=== PATIENT | female | born 1935 | race African-American/Black ===

== ENCOUNTER 2018-04-23 08:06 | Emergency (ER) | payer MEDICAID, MEDICARE, OTHER ==
[~2018-04-23] VITALS: Ht 162.6 cm; Wt 58.0 kg
[2018-04-23] MEDS ORDERED: KETOROLAC 30MG/ML VIAL IM ONE (10:00)
[2018-04-23 10:30] LABS: BASOPHILS % 0.6 % (0.0-2.0); EOSINOPHILS % 0.4 % (0.0-5.0); HEMATOCRIT. 36.3 % (36.0-48.0); LYMPHOCYTES % 28.1 % (20.0-50.0); MEAN CORPUSCULAR HEMOGLOBIN 29.6 pg (28.0-32.0); MEAN CORPUSCULAR VOLUME 89.3 fL (81.0-99.0); MEAN PLATELET VOLUME 7.5 fl (7.4-10.4); MONOCYTES % 5.2 % (2.0-8.0); NEUTROPHILS % 65.7 % (40.0-76.0); PLATELET 241 x1000/uL (130-400); RED BLOOD CELL COUNT 4.07 mill/uL (4.2-5.4); RED CELL DISTRIBUTION WIDTH 14.9 % (11.6-14.6)
[2018-04-23 10:41] LABS: CHLORIDE 106 mEq/L (98-107)
[2018-04-23 10:45] LABS: C REACTIVE PROTEIN CARDIAC 0.95 mg/L (0.00-3.00)
[2018-04-23] MEDS ORDERED: TRAMADOL 50MG TABLET PO ONE (12:45)
[2018-04-23 13:40] LABS: CLARITY URINE CLEAR (CLEAR); COLOR URINE YELLOW (YELLOW); KETONES URINE NEGATIVE (NEGATIVE); LEUKOCYTE ESTERASE URINE NEGATIVE (NEGATIVE); NITRITE URINE NEGATIVE (NEGATIVE); OCCULT BLOOD URINE NEGATIVE (NEGATIVE); PROTEIN URINE TRACE (NEGATIVE); SPECIFIC GRAVITY URINE 1.015 (1.005-1.030)
[2018-04-23 14:30] VITALS: BP 122/84
== END 2018-04-23 15:00 | disposition home or self-care (01) ==
LOC: ER 10:33
DX: M25.552 Pain in left hip (principal); J44.9 Chronic obstructive pulmonary disease, unspecified; I10 Essential (primary) hypertension; G89.29 Other chronic pain; M54.9 Dorsalgia, unspecified; M19.90 Unspecified osteoarthritis, unspecified site; Z90.710 Acquired absence of both cervix and uterus; G62.9 Polyneuropathy, unspecified
CPT/HCPCS: 36415; 72192; 73700; 80053; 81003; 85025; 85651; 86141; 96372; 99285; J1885

== ENCOUNTER 2019-03-31 22:21 | Inpatient (IN) | payer MEDICARE, MEDICAID ==
[~2019-03-31] VITALS: Ht 157.5 cm; Wt 60.3 kg
[2019-03-31] MEDS ORDERED: METHYLPREDNISOLONE SOD SUCC 125 MG/2 ML VIAL IV STA (22:28)
[2019-03-31] MEDS ORDERED: IPRATROPIUM BROMIDE (0.02%) 0.5MG/2.5ML NEB HHN STA (22:28)
[2019-03-31] MEDS ORDERED: ONDANSETRON HCL 4MG/2ML INJ IV STA (22:28)
[2019-03-31] MEDS ORDERED: MAGNESIUM 2 G PREMIX 50 ML IV ONE (22:30)
[2019-03-31] MEDS: ALBUTEROL (0.083%) 2.5MG/3ML NEB HHN SCH ×2 (23:00→23:30)
[2019-03-31 23:04] LABS: BG BILEVEL POS AIRWAY PRESSURE 15/5; BG CARBOXYHEMOGLOBIN 1.9 % (0.5-1.5); BG DEOXYHEMOGLOBIN 25.6 % (0.0-5.0); BG FRACTION INSPIRED OXYGEN 100; BG HCO3 ACT 26.9 mmol/L (22.0-26.0); BG METHEMOGLOBIN 0.1 % (0.0-1.5); BG OXYGEN SATURATION 73.9 % (92.0-98.5); BG OXYHEMOGLOBIN 72.4 % (94.0-97.0); BG PCO2 54.1 mmHg (35.0-45.0); BG PH 7.314 (7.350-7.450); BG PO2 43.2 mmHg (75.0-100.0); BG SAMPLE SITE RIGHT RADIAL; BG TOTAL HEMOGLOBIN 11.5 g/dL (12.0-18.0); BG VENT MODE MASK - BIPAP
[2019-03-31 23:33] LABS: BASOPHILS % 0.8 % (0.0-2.0); EOSINOPHILS % 1.6 % (0.0-5.0); HEMATOCRIT. 32.3 % (36.0-48.0); HEMOGLOBIN. 10.4 g/dL (12.0-16.0); LYMPHOCYTES % 26.1 % (20.0-50.0); MEAN CORPUSCULAR HEMOGLOBIN 29.1 pg (28.0-32.0); MEAN CORPUSCULAR VOLUME 90.3 fL (81.0-99.0); MEAN PLATELET VOLUME 7.3 fl (7.4-10.4); MONOCYTES % 7.1 % (2.0-8.0); NEUTROPHILS % 64.4 % (40.0-76.0); PLATELET 260 x1000/uL (130-400); RED BLOOD CELL COUNT 3.58 mill/uL (4.2-5.4); RED CELL DISTRIBUTION WIDTH 15.8 % (11.6-14.6)
[2019-03-31 23:38] LABS: CHLORIDE 111 mEq/L (98-107)
[2019-04-01] VITALS (9 sets, daily range): BP systolic 102–174; BP diastolic 58–95
[2019-04-01] MEDS: ALBUTEROL (0.083%) 2.5MG/3ML NEB HHN SCH
[2019-04-01 00:18] LABS: CLARITY URINE CLEAR (CLEAR); COLOR URINE YELLOW (YELLOW); KETONES URINE NEGATIVE (NEGATIVE); LEUKOCYTE ESTERASE URINE NEGATIVE (NEGATIVE); NITRITE URINE NEGATIVE (NEGATIVE); OCCULT BLOOD URINE NEGATIVE (NEGATIVE); PROTEIN URINE 2+ (NEGATIVE); SPECIFIC GRAVITY URINE 1.019 (1.005-1.030); UROBILINOGEN URINE 0.2 E.U./dL (0.2-1.0)
[2019-04-01] MEDS ORDERED: DEXT 5%/0.45% NACL 500ML 1,000 ML IV SCH (04:30)
[2019-04-01] MEDS ORDERED: ONDANSETRON HCL 4MG/2ML INJ IV PRN (04:30)
[2019-04-01 06:36] LABS: CHLORIDE 110 mEq/L (98-107)
[2019-04-01 07:34] LABS: BG BILEVEL POS AIRWAY PRESSURE 15/5; BG CARBOXYHEMOGLOBIN 0.3 % (0.5-1.5); BG DEOXYHEMOGLOBIN 0.5 % (0.0-5.0); BG FRACTION INSPIRED OXYGEN 80; BG HCO3 ACT 29.1 mmol/L (22.0-26.0); BG METHEMOGLOBIN 0.4 % (0.0-1.5); BG OXYGEN SATURATION 99.5 % (92.0-98.5); BG OXYHEMOGLOBIN 98.8 % (94.0-97.0); BG PCO2 51.5 mmHg (35.0-45.0); BG PO2 365.9 mmHg (75.0-100.0); BG SAMPLE SITE RIGHT BRACHIAL; BG VENT MODE MASK - BIPAP; BG VENT RATE 16 set
[2019-04-01] MEDS: ENOXAPARIN 40MG/0.4ML SYR SUBCUT SCH (08:03)
[2019-04-01] MEDS: METHYLPREDNISOLONE SOD SUCC 40 MG/ML VIAL IV SCH ×3 (08:03→17:12)
[2019-04-01] MEDS: DEXT 5%/0.45% NACL 1000ML 1,000 ML IV SCH ×2 (08:26→20:00)
[2019-04-01] MEDS ORDERED: LEVOFLOXACIN 500MG PREMIX 100 ML IV SCH (08:30)
[2019-04-01] MEDS ORDERED: PANTOPRAZOLE SODIUM 40 MG/VIAL IV SCH (09:00)
[2019-04-01] MEDS: CLONIDINE 0.1MG TABLET PO PRN (09:49)
[2019-04-01] MEDS ORDERED: PNEUMOCOCCAL 23-VAL P-SAC VAC 0.5 ML IM ONE (12:00)
[2019-04-01] MEDS ORDERED: INFLUENZA VIRUS VACCINE(AFLURIA) 0.5ML SYR IM ONE (12:00)
[2019-04-01] MEDS: IPRATROPIUM/ALBUTEROL 0.5-3(2.5)MG/3ML NEB HHN SCH ×3 (12:30→19:49)
[2019-04-01 13:37] LABS: HEMATOCRIT. 31.9 % (36.0-48.0); HEMOGLOBIN. 10.2 g/dL (12.0-16.0); MEAN CORPUSCULAR HEMOGLOBIN 29.1 pg (28.0-32.0); MEAN PLATELET VOLUME 7.5 fl (7.4-10.4); PLATELET 234 x1000/uL (130-400); RED CELL DISTRIBUTION WIDTH 15.8 % (11.6-14.6)
[2019-04-01] MEDS ORDERED: GABA300S PO (13:37)
[2019-04-01] MEDS ORDERED: HYDR-459 MT (13:37)
[2019-04-01] MEDS ORDERED: ASPI-1393 MT (13:37)
[2019-04-01] MEDS ORDERED: AMLO5TAB88 MT (13:37)
[2019-04-01] MEDS ORDERED: LOSA50TA41 MT (13:37)
[2019-04-01] MEDS ORDERED: OMEP20CA5 MT (13:37)
[2019-04-01 13:47] LABS: D-DIMER 0.75 mg/L FEU (<0.50); INR 1.2; PROTHROMBIN TIME 11.8 sec (9.6-11.0)
[2019-04-01 13:58] LABS: PLATELET ESTIMATE NORMAL
[2019-04-01] MEDS ORDERED: BISACODYL 10MG SUPP PR PRN (15:45)
[2019-04-01] MEDS ORDERED: IPRATROPIUM/ALBUTEROL 0.5-3(2.5)MG/3ML NEB HHN PRN (15:45)
[2019-04-01] MEDS ORDERED: LORAZEPAM 2MG/ML CPJ IV PRN (15:45)
[2019-04-01] MEDS: ACETAMINOPHEN 325MG TABLET PO PRN (16:39)
[2019-04-01] MEDS: MONTELUKAST SODIUM 10MG TABLET PO SCH (17:12)
[2019-04-01] MEDS: GABAPENTIN 300MG CAPSULE PO SCH (17:12)
[2019-04-01] MEDS: FAMOTIDINE 20MG/2ML VIAL IV SCH (21:30)
[2019-04-01 23:23] LABS: *AMPHETAMINES SCREEN URINE NEGATIVE (NEGATIVE); *BARBITURATES SCREEN URINE NEGATIVE (NEGATIVE); *BENZODIAZEPINES SCREEN URINE NEGATIVE (NEGATIVE); *COCAINE SCREEN URINE PRESUMTIVE POSITIVE (NEGATIVE); METHADONE URINE SCREEN NEGATIVE (NEGATIVE); OPIATES URINE SCREEN NEGATIVE (NEGATIVE)
[2019-04-01 23:25] LABS: PHENCYCLIDINE URINE SCREEN NEGATIVE (NEGATIVE)
[2019-04-01 23:31] LABS: CANNABINOID URINE SCREEN NEGATIVE (NEGATIVE)
[2019-04-02] VITALS (12 sets, daily range): BP systolic 135–166; BP diastolic 67–120
[2019-04-02] MEDS: IPRATROPIUM/ALBUTEROL 0.5-3(2.5)MG/3ML NEB HHN SCH ×6 (00:55→20:04)
[2019-04-02] MEDS: METHYLPREDNISOLONE SOD SUCC 40 MG/ML VIAL IV SCH ×4 (01:50→21:30)
[2019-04-02 06:56] LABS: HEMATOCRIT. 31.3 % (36.0-48.0); HEMOGLOBIN. 9.9 g/dL (12.0-16.0); MEAN CORPUSCULAR HEMOGLOBIN 28.7 pg (28.0-32.0); MEAN CORPUSCULAR VOLUME 90.5 fL (81.0-99.0); MEAN PLATELET VOLUME 7.5 fl (7.4-10.4); PLATELET 240 x1000/uL (130-400); RED BLOOD CELL COUNT 3.46 mill/uL (4.2-5.4); RED CELL DISTRIBUTION WIDTH 15.8 % (11.6-14.6)
[2019-04-02 08:21] LABS: CHLORIDE 107 mEq/L (98-107)
[2019-04-02] MEDS: LOSARTAN POTASSIUM 50 MG TABLET PO SCH (08:28)
[2019-04-02] MEDS: LEVOFLOXACIN 250MG PREMIX 50 ML IV SCH (08:28)
[2019-04-02] MEDS: ENOXAPARIN 40MG/0.4ML SYR SUBCUT SCH (08:28)
[2019-04-02] MEDS: GABAPENTIN 300MG CAPSULE PO SCH ×2 (08:29→16:58)
[2019-04-02] MEDS: LORATADINE 10MG TABLET PO SCH (08:29)
[2019-04-02] MEDS: AMLODIPINE 5MG TABLET PO SCH (08:29)
[2019-04-02] MEDS: FAMOTIDINE 20MG/2ML VIAL IV SCH (08:29)
[2019-04-02] MEDS: DEXT 5%/0.45% NACL 1000ML 1,000 ML IV SCH (08:29)
[2019-04-02] MEDS: ASPIRIN 81MG TABLET PO SCH (08:29)
[2019-04-02 09:11] LABS: PLATELET ESTIMATE NORMAL
[2019-04-02] MEDS ORDERED: LIDOCAINE HCL 1% 20ML VIAL (Pyxis) INJ ONE (10:08)
[2019-04-02 11:19] LABS: BG BASE EXCESS 2.6 mmol/L (-2.0-2.0); BG CARBOXYHEMOGLOBIN 0.1 % (0.5-1.5); BG DEOXYHEMOGLOBIN 5.1 % (0.0-5.0); BG FRACTION INSPIRED OXYGEN 32; BG HCO3 ACT 27.9 mmol/L (22.0-26.0); BG METHEMOGLOBIN 0.3 % (0.0-1.5); BG OXYGEN SATURATION 94.9 % (92.0-98.5); BG OXYHEMOGLOBIN 94.5 % (94.0-97.0); BG PCO2 45.9 mmHg (35.0-45.0); BG PH 7.401 (7.350-7.450); BG PO2 73.1 mmHg (75.0-100.0); BG SAMPLE SITE RIGHT BRACHIAL; BG TOTAL HEMOGLOBIN 10.9 g/dL (12.0-18.0); BG VENT MODE NASAL CANNULA
[2019-04-02] MEDS ORDERED: IOHEXOL-350 100 ML BOTTLE ONE (12:44)
[2019-04-02] MEDS: MONTELUKAST SODIUM 10MG TABLET PO SCH (16:58)
[2019-04-02] MEDS: DILTIAZEM HCL 30MG TABLET PO SCH (21:29)
[2019-04-02] MEDS: ACETAMINOPHEN 325MG TABLET PO PRN (21:30)
[2019-04-02] MEDS: HYDROCODONE/ACETAMINOPHEN 5/325MG TABLET PO PRN (22:51)
[2019-04-03] VITALS (13 sets, daily range): BP systolic 130–157; BP diastolic 34–92
[2019-04-03] MEDS: IPRATROPIUM/ALBUTEROL 0.5-3(2.5)MG/3ML NEB HHN SCH ×6 (00:17→20:36)
[2019-04-03] MEDS: METHYLPREDNISOLONE SOD SUCC 40 MG/ML VIAL IV SCH ×3 (05:34→21:43)
[2019-04-03] MEDS: DILTIAZEM HCL 30MG TABLET PO SCH ×3 (05:36→21:44)
[2019-04-03 07:12] LABS: HEMATOCRIT. 29.8 % (36.0-48.0); HEMOGLOBIN. 9.5 g/dL (12.0-16.0); MEAN CORPUSCULAR HEMOGLOBIN 28.7 pg (28.0-32.0); MEAN CORPUSCULAR VOLUME 89.7 fL (81.0-99.0); MEAN PLATELET VOLUME 7.8 fl (7.4-10.4); PLATELET 253 x1000/uL (130-400); RED BLOOD CELL COUNT 3.32 mill/uL (4.2-5.4); RED CELL DISTRIBUTION WIDTH 16.1 % (11.6-14.6)
[2019-04-03 07:13] LABS: CHLORIDE 108 mEq/L (98-107)
[2019-04-03 07:23] LABS: LDL CHOLESTEROL 83 mg/dL (5-100)
[2019-04-03 07:25] LABS: HDL CHOLESTEROL 84 mg/dL (40-59); T4 FREE 0.96 ng/dL (0.76-1.46)
[2019-04-03] MEDS: ASPIRIN 81MG TABLET PO SCH (09:04)
[2019-04-03] MEDS: LEVOFLOXACIN 250MG PREMIX 50 ML IV SCH (09:05)
[2019-04-03] MEDS: ENOXAPARIN 40MG/0.4ML SYR SUBCUT SCH (09:05)
[2019-04-03] MEDS: LOSARTAN POTASSIUM 50 MG TABLET PO SCH (09:05)
[2019-04-03] MEDS: FAMOTIDINE 20MG/2ML VIAL IV SCH (09:05)
[2019-04-03] MEDS: GABAPENTIN 300MG CAPSULE PO SCH ×2 (09:05→16:21)
[2019-04-03] MEDS: AMLODIPINE 5MG TABLET PO SCH (09:05)
[2019-04-03] MEDS: LORATADINE 10MG TABLET PO SCH (09:05)
[2019-04-03] MEDS: HYDROCODONE/ACETAMINOPHEN 5/325MG TABLET PO PRN ×2 (09:18→23:36)
[2019-04-03] MEDS: MONTELUKAST SODIUM 10MG TABLET PO SCH (16:21)
[2019-04-03 19:37] LABS: PLATELET ESTIMATE NORMAL
[2019-04-03] MEDS: ACETAMINOPHEN 325MG TABLET PO PRN (19:51)
[2019-04-04] VITALS (12 sets, daily range): BP systolic 133–164; BP diastolic 67–82
[2019-04-04] MEDS: IPRATROPIUM/ALBUTEROL 0.5-3(2.5)MG/3ML NEB HHN SCH ×6 (00:34→20:03)
[2019-04-04] MEDS: HYDROCODONE/ACETAMINOPHEN 5/325MG TABLET PO PRN ×2 (06:25→17:38)
[2019-04-04] MEDS: DILTIAZEM HCL 30MG TABLET PO SCH ×3 (06:31→21:02)
[2019-04-04] MEDS: METHYLPREDNISOLONE SOD SUCC 40 MG/ML VIAL IV SCH ×3 (06:31→21:01)
[2019-04-04] MEDS: CLONIDINE 0.1MG TABLET PO PRN (06:31)
[2019-04-04 07:07] LABS: HEMATOCRIT 31.4 % (36.0-48.0); HEMOGLOBIN 10.2 g/dL (12.0-16.0); MEAN CORPUSCULAR HEMOGLOBIN 29.1 pg (28.0-32.0); MEAN CORPUSCULAR VOLUME 89.7 fL (81.0-99.0); PLATELET 269 x1000/uL (130-400); RED BLOOD CELL COUNT 3.49 mill/uL (4.2-5.4); RED CELL DISTRIBUTION WIDTH 15.8 % (11.6-14.6)
[2019-04-04 07:49] LABS: CHLORIDE 107 mEq/L (98-107)
[2019-04-04] MEDS: LEVOFLOXACIN 250MG PREMIX 50 ML IV SCH (09:25)
[2019-04-04] MEDS: ASPIRIN 81MG TABLET PO SCH (09:34)
[2019-04-04] MEDS: LORATADINE 10MG TABLET PO SCH (09:34)
[2019-04-04] MEDS: GABAPENTIN 300MG CAPSULE PO SCH ×2 (09:34→17:36)
[2019-04-04] MEDS: FAMOTIDINE 20MG/2ML VIAL IV SCH (09:34)
[2019-04-04] MEDS: LOSARTAN POTASSIUM 50 MG TABLET PO SCH (09:34)
[2019-04-04] MEDS: AMLODIPINE 5MG TABLET PO SCH (09:34)
[2019-04-04] MEDS: ENOXAPARIN 40MG/0.4ML SYR SUBCUT SCH (09:35)
[2019-04-04] MEDS: ACETYLCYSTEINE 100MG/ML 10% VIAL 4ML INH SCH (16:06)
[2019-04-04] MEDS: MONTELUKAST SODIUM 10MG TABLET PO SCH (17:36)
[2019-04-05] VITALS (12 sets, daily range): BP systolic 107–165; BP diastolic 51–83
[2019-04-05] MEDS: ACETYLCYSTEINE 100MG/ML 10% VIAL 4ML INH SCH ×3 (00:13→15:58)
[2019-04-05] MEDS: IPRATROPIUM/ALBUTEROL 0.5-3(2.5)MG/3ML NEB HHN SCH ×6 (00:13→20:38)
[2019-04-05] MEDS: HYDROCODONE/ACETAMINOPHEN 5/325MG TABLET PO PRN ×2 (03:15→23:31)
[2019-04-05] MEDS: DIPHENHYDRAMINE 50MG/ML VIAL IV PRN (03:16)
[2019-04-05] MEDS: METHYLPREDNISOLONE SOD SUCC 40 MG/ML VIAL IV SCH ×3 (05:19→21:25)
[2019-04-05] MEDS: DILTIAZEM HCL 30MG TABLET PO SCH ×3 (05:19→21:25)
[2019-04-05] MEDS: FAMOTIDINE 20MG/2ML VIAL IV SCH (09:45)
[2019-04-05] MEDS: ENOXAPARIN 40MG/0.4ML SYR SUBCUT SCH (09:46)
[2019-04-05] MEDS: GABAPENTIN 300MG CAPSULE PO SCH ×2 (09:46→18:04)
[2019-04-05] MEDS: LORATADINE 10MG TABLET PO SCH (09:46)
[2019-04-05] MEDS: ASPIRIN 81MG TABLET PO SCH (09:46)
[2019-04-05] MEDS: LOSARTAN POTASSIUM 50 MG TABLET PO SCH (09:46)
[2019-04-05] MEDS: AMLODIPINE 5MG TABLET PO SCH (09:47)
[2019-04-05] MEDS: LEVOFLOXACIN 250MG PREMIX 50 ML IV SCH (11:33)
[2019-04-05] MEDS: MONTELUKAST SODIUM 10MG TABLET PO SCH (18:04)
[2019-04-05] MEDS: ACETAMINOPHEN 325MG TABLET PO PRN (18:08)
[2019-04-06] VITALS (13 sets, daily range): BP systolic 108–163; BP diastolic 56–82
[2019-04-06] MEDS: IPRATROPIUM/ALBUTEROL 0.5-3(2.5)MG/3ML NEB HHN SCH ×6 (00:46→20:34)
[2019-04-06] MEDS: ACETYLCYSTEINE 100MG/ML 10% VIAL 4ML INH SCH ×3 (00:46→15:50)
[2019-04-06] MEDS: DILTIAZEM HCL 30MG TABLET PO SCH ×3 (06:14→21:33)
[2019-04-06] MEDS: METHYLPREDNISOLONE SOD SUCC 40 MG/ML VIAL IV SCH ×3 (06:14→21:24)
[2019-04-06] MEDS: LORATADINE 10MG TABLET PO SCH (08:56)
[2019-04-06] MEDS: ASPIRIN 81MG TABLET PO SCH (08:56)
[2019-04-06] MEDS: LOSARTAN POTASSIUM 50 MG TABLET PO SCH (08:56)
[2019-04-06] MEDS: GABAPENTIN 300MG CAPSULE PO SCH ×2 (08:56→18:05)
[2019-04-06] MEDS: FAMOTIDINE 20MG/2ML VIAL IV SCH (08:56)
[2019-04-06] MEDS: AMLODIPINE 5MG TABLET PO SCH (08:57)
[2019-04-06] MEDS: ENOXAPARIN 40MG/0.4ML SYR SUBCUT SCH (08:57)
[2019-04-06] MEDS: LEVOFLOXACIN 250MG PREMIX 50 ML IV SCH (08:59)
[2019-04-06] MEDS ORDERED: LACTULOSE 20G/30ML UDC PO NR (10:45)
[2019-04-06] MEDS: HYDROCODONE/ACETAMINOPHEN 5/325MG TABLET PO PRN (13:52)
[2019-04-06] MEDS: MONTELUKAST SODIUM 10MG TABLET PO SCH (18:05)
[2019-04-06] MEDS: ACETAMINOPHEN 325MG TABLET PO PRN (21:32)
[2019-04-06] MEDS: CLONIDINE 0.1MG TABLET PO PRN (21:38)
[2019-04-06] MEDS: DIPHENHYDRAMINE 50MG/ML VIAL IV PRN (22:30)
== END 2019-04-06 23:15 | DRG 917 ==
LOC: ER 22:21 → 5EST 23:39 → ENRESERV 04-01 01:01
PROVIDERS: ADMIT Internal Medicine; ATTEND Internal Medicine
PROC: 5A09357 Assistance with Respiratory Ventilation, Less than 24 Consecutive Hours, Continuous Positive Airway Pressure (ICD-10-PCS; 2019-03-31)
PROC: 5A09357 Assistance with Respiratory Ventilation, Less than 24 Consecutive Hours, Continuous Positive Airway Pressure (ICD-10-PCS; 2019-04-01)
PROC: 02HV33Z Insertion of Infusion Device into Superior Vena Cava, Percutaneous Approach (ICD-10-PCS; principal; 2019-04-02)
PROC: B548ZZA Ultrasonography of Superior Vena Cava, Guidance (ICD-10-PCS; 2019-04-02)
PROC: 5A09357 Assistance with Respiratory Ventilation, Less than 24 Consecutive Hours, Continuous Positive Airway Pressure (ICD-10-PCS; 2019-04-02)
PROC: 5A09357 Assistance with Respiratory Ventilation, Less than 24 Consecutive Hours, Continuous Positive Airway Pressure (ICD-10-PCS; 2019-04-03)
PROC: 5A09357 Assistance with Respiratory Ventilation, Less than 24 Consecutive Hours, Continuous Positive Airway Pressure (ICD-10-PCS; 2019-04-04)
PROC: 5A09357 Assistance with Respiratory Ventilation, Less than 24 Consecutive Hours, Continuous Positive Airway Pressure (ICD-10-PCS; 2019-04-05)
PROC: 5A09357 Assistance with Respiratory Ventilation, Less than 24 Consecutive Hours, Continuous Positive Airway Pressure (ICD-10-PCS; 2019-04-06)
DX: T40.5X1A Poisoning by cocaine, accidental (unintentional), initial encounter (principal); J96.01 Acute respiratory failure with hypoxia; I50.43 Acute on chronic combined systolic (congestive) and diastolic (congestive) heart failure; J96.02 Acute respiratory failure with hypercapnia; J68.0 Bronchitis and pneumonitis due to chemicals, gases, fumes and vapors; J98.11 Atelectasis; E87.2 Acidosis; Y92.89 Other specified places as the place of occurrence of the external cause; D64.9 Anemia, unspecified; E86.0 Dehydration; F17.210 Nicotine dependence, cigarettes, uncomplicated; G89.29 Other chronic pain; I11.0 Hypertensive heart disease with heart failure; I35.1 Nonrheumatic aortic (valve) insufficiency; Z90.710 Acquired absence of both cervix and uterus; Z91.19 Patient's noncompliance with other medical treatment and regimen; Z99.81 Dependence on supplemental oxygen; R26.9 Unspecified abnormalities of gait and mobility
CPT/HCPCS: 36415; 36600; 71045; 71275; 72131; 76937; 80048; 80061; 80305; 81003; 82375; 82805; 83036; 83605; 83880; 84145; 84439; 84443; 84484; 85027; 85379; 87070; 87804; 90686; 90732; 93005; 93306; 93970; 94640; 94644; 94660; 97162; 99285; C1725; C1893; C9113; J1200; J1650; J1956; J2060; J2405; J2920; J2930; J3475; J3490; J7040; J7608; J7611; J7620; Q9967

== ENCOUNTER 2020-02-06 15:58 | Inpatient (IN) | payer MEDICARE, MEDICAID ==
[~2020-02-06] VITALS: Ht 165.1 cm; Wt 53.5 kg
[~2020-02-06 15:58] MED LIST: AMLO5TAB88 MT; ASPI-1497 MT; GABA300S PO; HYDR-459 MT; LOSA50TA41 MT; OMEP20CA14 MT
[2020-02-06 16:58] LABS: BASOPHILS % 0.9 % (0.0-2.0); HEMOGLOBIN. 9.8 g/dL (12.0-16.0); LYMPHOCYTES % 10.7 % (20.0-50.0); MEAN CORPUSCULAR HEMOGLOBIN 24.5 pg (28.0-32.0); MEAN CORPUSCULAR VOLUME 79.9 fL (81.0-99.0); MONOCYTES % 7.9 % (2.0-8.0); NEUTROPHILS % 80.5 % (40.0-76.0); PLATELET 343 x1000/uL (130-400); RED BLOOD CELL COUNT 4.01 mill/uL (4.2-5.4); RED CELL DISTRIBUTION WIDTH 18.1 % (11.6-14.6)
[2020-02-06 17:03] LABS: CHLORIDE 99 mEq/L (98-107)
[2020-02-06 17:04] LABS: INR 1.2; PROTHROMBIN TIME 12.9 sec (9.6-11.0)
[2020-02-06 17:18] LABS: BG BASE EXCESS -8.6 mmol/L (-2.0-2.0); BG DEOXYHEMOGLOBIN 2.6 % (0.0-5.0); BG FRACTION INSPIRED OXYGEN 36; BG HCO3 ACT 20.5 mmol/L (22.0-26.0); BG METHEMOGLOBIN 0.5 % (0.0-1.5); BG OXYGEN SATURATION 97.4 % (92.0-98.5); BG OXYHEMOGLOBIN 96.9 % (94.0-97.0); BG PCO2 60.4 mmHg (35.0-45.0); BG PH 7.148 (7.350-7.450); BG PO2 113.5 mmHg (75.0-100.0); BG SAMPLE SITE RIGHT BRACHIAL; BG TOTAL HEMOGLOBIN 10.6 g/dL (12.0-18.0); BG VENT MODE NASAL CANNULA
[2020-02-06 17:18] LABS: COLOR URINE DK YELLOW (YELLOW); KETONES URINE TRACE (NEGATIVE); LEUKOCYTE ESTERASE URINE TRACE (NEGATIVE); NITRITE URINE NEGATIVE (NEGATIVE); OCCULT BLOOD URINE NEGATIVE (NEGATIVE); PROTEIN URINE TRACE (NEGATIVE); SPECIFIC GRAVITY URINE 1.018 (1.005-1.030); UROBILINOGEN URINE 0.2 E.U./dL (0.2-1.0)
[2020-02-06 17:40] LABS: CLARITY URINE SL HAZY (CLEAR)
[2020-02-06] MEDS ORDERED: ALBUTEROL (0.083%) 2.5MG/3ML NEB HHN ONE (18:30)
[2020-02-06] MEDS: DEXT 5%/0.45% NACL 1000ML 1,000 ML IV SCH (23:08)
[2020-02-06 23:30] VITALS: BP 91/43
[2020-02-07] VITALS (9 sets, daily range): BP systolic 85–102; BP diastolic 40–53
[2020-02-07] MEDS ORDERED: CEFTRIAXONE 1,000 MG in DEXTROSE 5% WATER 50 ML IV SCH ×2
[2020-02-07] MEDS: IPRATROPIUM/ALBUTEROL 0.5-3(2.5)MG/3ML NEB HHN SCH ×3 (00:53→09:40)
[2020-02-07 09:31] LABS: BG BASE EXCESS -8.3 mmol/L (-2.0-2.0); BG CARBOXYHEMOGLOBIN 0.1 % (0.5-1.5); BG DEOXYHEMOGLOBIN 0.7 % (0.0-5.0); BG FRACTION INSPIRED OXYGEN 100; BG HCO3 ACT 20.1 mmol/L (22.0-26.0); BG METHEMOGLOBIN 0.4 % (0.0-1.5); BG OXYGEN SATURATION 99.3 % (92.0-98.5); BG OXYHEMOGLOBIN 98.8 % (94.0-97.0); BG PCO2 55.8 mmHg (35.0-45.0); BG PH 7.175 (7.350-7.450); BG PO2 256.4 mmHg (75.0-100.0); BG SAMPLE SITE RIGHT RADIAL; BG TOTAL HEMOGLOBIN 10.4 g/dL (12.0-18.0); BG VENT MODE MASK - BIPAP
[2020-02-07] MEDS ORDERED: LORAZEPAM 2MG/ML CPJ IV PRN (11:15)
[2020-02-07] MEDS: MORPHINE SULFATE 250 MG in DEXT 5% WATER 240 ML IV PRN (12:25)
[2020-02-07] MEDS: DEXT 5%/0.45% NACL 1000ML 1,000 ML IV SCH (13:49)
[2020-02-07] MEDS: CEFTRIAXONE 1,000 MG in DEXTROSE 5% WATER 50 ML IV SCH (19:55)
[2020-02-08] VITALS (7 sets, daily range): BP systolic 94–139; BP diastolic 44–68
[2020-02-08] MEDS: DEXT 5%/0.45% NACL 1000ML 1,000 ML IV SCH ×2 (07:57→21:24)
[2020-02-08] MEDS: CEFTRIAXONE 1,000 MG in DEXTROSE 5% WATER 50 ML IV SCH (20:23)
[2020-02-09] VITALS: BP 120/60
[2020-02-09 04:00] VITALS: BP 126/68
[2020-02-09 08:00] VITALS: BP 147/72
[2020-02-09 12:00] VITALS: BP 119/65
[2020-02-09] MEDS: DEXT 5%/0.45% NACL 1000ML 1,000 ML IV SCH (15:59)
[2020-02-09 16:00] VITALS: BP 126/73
[2020-02-09 20:00] VITALS: BP 130/76
[2020-02-09] MEDS: CEFTRIAXONE 1,000 MG in DEXTROSE 5% WATER 50 ML IV SCH (20:35)
[2020-02-10] VITALS: BP 147/80
[2020-02-10 04:00] VITALS: BP 135/75
[2020-02-10 08:00] VITALS: BP 94/47
[2020-02-10] MEDS: DEXT 5%/0.45% NACL 1000ML 1,000 ML IV SCH (10:43)
[2020-02-10 12:00] VITALS: BP 131/49
[2020-02-10 16:00] VITALS: BP 125/54
[2020-02-10 20:00] VITALS: BP 144/63
[2020-02-10] MEDS: CEFTRIAXONE 1,000 MG in DEXTROSE 5% WATER 50 ML IV SCH (21:08)
[2020-02-10] MEDS: MORPHINE SULFATE 250 MG in DEXT 5% WATER 240 ML IV PRN (23:37)
[2020-02-11] VITALS (7 sets, daily range): BP systolic 103–150; BP diastolic 43–63
[2020-02-11] MEDS: DEXT 5%/0.45% NACL 1000ML 1,000 ML IV SCH (04:33)
[2020-02-12] VITALS: BP 109/46
[2020-02-12 04:00] VITALS: BP 100/41
[2020-02-12 08:28] VITALS: BP 102/45
[2020-02-12 12:00] VITALS: BP 105/42
[2020-02-12 16:00] VITALS: BP 106/42
[2020-02-12] MEDS: ACETAMINOPHEN 650MG SUPP PR PRN (17:59)
[2020-02-12 20:00] VITALS: BP 104/50
[2020-02-12] MEDS ORDERED: ACETAMINOPHEN 650MG SUPP PR PRN (20:00)
[2020-02-12] MEDS ORDERED: MORPHINE SULFATE 250 MG in DEXT 5% WATER 240 ML IV PRN (21:00)
[2020-02-12] MEDS ORDERED: MORPHINE SULFATE 250 MG in DEXT 5% WATER 225 ML IV PRN (21:02)
[2020-02-13] VITALS: BP 115/48
[2020-02-13] MEDS: ACETAMINOPHEN 650MG SUPP PR PRN (01:45)
[2020-02-13 04:00] VITALS: BP 118/47
[2020-02-13 08:00] VITALS: BP 106/45
[2020-02-13 12:00] VITALS: BP 97/39
[2020-02-13 12:55] VITALS: BP 97/39
[2020-02-13] MEDS ORDERED: MORPHINE SULFATE 250 MG in DEXT 5% WATER 225 ML IV PRN ×2 (13:00→16:16)
== END 2020-02-13 14:35 | disposition hospice, inpatient (51) | DRG 871 ==
LOC: ER 15:58 → EDBEDREQSVC 18:32 → EDBEDREQTM 18:32 → EDBEDREQ 18:32 → 3WST 19:01 → EDBEDREQTM 19:07 → EDBEDREQ 19:07 → ENRESERV 20:59 → 7WST 02-07 12:09 → 6EST 02-09 23:10
PROVIDERS: ADMIT Internal Medicine; ATTEND Internal Medicine
PROC: 5A09357 Assistance with Respiratory Ventilation, Less than 24 Consecutive Hours, Continuous Positive Airway Pressure (ICD-10-PCS; principal; 2020-02-06)
DX: A41.9 Sepsis, unspecified organism (principal); J96.02 Acute respiratory failure with hypercapnia; E43 Unspecified severe protein-calorie malnutrition; N17.0 Acute kidney failure with tubular necrosis; I50.43 Acute on chronic combined systolic (congestive) and diastolic (congestive) heart failure; J69.0 Pneumonitis due to inhalation of food and vomit; E87.1 Hypo-osmolality and hyponatremia; N17.9 Acute kidney failure, unspecified; G93.40 Encephalopathy, unspecified; J44.0 Chronic obstructive pulmonary disease with (acute) lower respiratory infection; J44.1 Chronic obstructive pulmonary disease with (acute) exacerbation; Z68.1 Body mass index [BMI] 19.9 or less, adult; D64.9 Anemia, unspecified; Z51.5 Encounter for palliative care; I11.0 Hypertensive heart disease with heart failure; Z20.828 Contact with and (suspected) exposure to other viral communicable diseases; Z66 Do not resuscitate; Z90.710 Acquired absence of both cervix and uterus; Z90.49 Acquired absence of other specified parts of digestive tract; Z79.82 Long term (current) use of aspirin; Z79.899 Other long term (current) drug therapy
CPT/HCPCS: 36415; 36600; 71045; 80053; 81003; 82375; 82805; 83605; 83880; 84484; 85025; 87635; 93005; 94640; 94660; 99291; J0696; J2270; J2274; J7060